=== PATIENT | female | born 1995 | race Caucasian/White ===

== ENCOUNTER → 2016-05-06 | Outpatient (CLI) | payer OTHER ==
[2016-05-06 13:29] LABS: BASO % 0.3 % (0.0-1.0); EOS # 0.1 K/mm3 (0.0-0.50); EOS % 0.7 % (0.0-3.0); LARGE UNSTAINED CELL # 0.1 K/mm3 (0.0-0.4); LARGE UNSTAINED CELL % 0.5 % (0.0-4.0); LYMPH % 14.8 % (24.0-44.0); MEAN CORPUSCULAR HEMOGLOBIN 29.9 pg (27.0-33.0); MEAN CORPUSCULAR HGB CONC 33.4 g/dl (32.0-36.5); MEAN CORPUSCULAR VOLUME 89.3 fl (80.0-96.0); MONO # 0.6 K/mm3 (0.0-0.8); MONO % 4.1 % (0.0-5.0); NEUTROPHILS # 10.9 K/mm3 (1.8-7.7); NEUTROPHILS % 79.7 % (36.0-66.0); PLATELET COUNT, AUTOMATED 217 k/mm3 (150-450); RED CELL DISTRIBUTION WIDTH 13.7 % (11.5-14.5); WHITE BLOOD COUNT 13.6 K/mm3 (4.0-10.0)
== END ==
LOC: M SMT 09:43
PROVIDERS: ATTEND Advanced Practice Midwife
DX: Z34.82 Encounter for supervision of other normal pregnancy, second trimester (principal)

== ENCOUNTER → 2016-07-22 | Outpatient (REF) | payer OTHER | LOC: M LAB REF 16:52 | PROVIDERS: ATTEND Advanced Practice Midwife | DX: Z34.83 Encounter for supervision of other normal pregnancy, third trimester (principal) ==

== ENCOUNTER 2016-08-19 06:59 | Inpatient (IN) | payer OTHER ==
[~2016-08-19] VITALS: Ht 160 cm; Wt 100.0 kg
[2016-08-19] VITALS (25 sets, daily range): BP systolic 122–164; BP diastolic 61–93
[2016-08-19] MEDS ORDERED: VITAPRTA PO (07:46)
[2016-08-19] MEDS ORDERED: LR 1,000 ML IV SCH (08:18)
[2016-08-19] MEDS ORDERED: OXYTOCIN DRIP 30 UNITS in APPROPRIATE DILUENT 1 EA IV SCH ×2 (08:30→13:15)
[2016-08-19] MEDS ORDERED: OXYTOCIN 30 UNITS IN 0.9% NaCl 500ML IV BAG (J2590) As Ordered ONE (09:02)
[2016-08-19 09:07] LABS: MEAN CORPUSCULAR HEMOGLOBIN 29.2 pg (27.0-33.0); MEAN CORPUSCULAR HGB CONC 33.6 g/dl (32.0-36.5); MEAN CORPUSCULAR VOLUME 86.9 fl (80.0-96.0); RED CELL DISTRIBUTION WIDTH 14.1 % (11.5-14.5); WHITE BLOOD COUNT 18.5 K/mm3 (4.0-10.0)
[2016-08-19 09:23] LABS: ALT/SGPT 16 U/L (12-78); AST/SGOT 13 U/L (15-37); BILIRUBIN,TOTAL 0.2 MG/DL (0.2-1.0); CREATININE FOR GFR 0.61 MG/DL (0.55-1.02); GLOMERULAR FILTRATION RATE > 60.0 (>60); URIC ACID 3.8 MG/DL (2.6-6.0)
--- NOTE | 2016-08-19 09:26 | HPE ---
DATE OF ADMISSION: 08/19/2016 Yvonne is a 20-year-old, 1 para 0 at 40-2/7 weeks gestation with an EDC of 08/17/2016 based on last normal period and confirmed by first trimester ultrasound. She presents to labor and delivery today with report of spontaneous rupture of membranes, clear odorless fluid at approximately 0430. She does report some contractions that started immediately after, however they are about 4 to 6 minutes apart. She does report continued leakage of fluid, some scant bloody show and the fetus has been active. care initiated at [facility] in the first trimester. course complicated by tobacco use throughout entire . OB HISTORY: Prima . OB LABS: Blood type O positive. Antibody screen negative. Rubella immune. VDRL nonreactive. Urine culture with no growth. Hep B surface antigen negative. HIV negative. Hep C antibody nonreactive. Gonorrhea and chlamydia negative. She did undergo cystic fibrosis carrier screening which was negative for 97 mutations. Gestational diabetic screen 98 and Group B Streptococcus (GBS) is negative. PAST MEDICAL HISTORY: No current problems. SURGERIES: None. FAMILY HISTORY : Diabetes, hypertension, heart disease, multiple sclerosis and cystic fibrosis. FAMILY HISTORY: Patient is single. The father of the baby is at bedside and supportive. She is a smoker. Denies alcohol and drug use. No history of any sexually transmitted infections and denies history of abuse, physical, sexual and emotional. ALLERGIES: PENICILLIN. CURRENT MEDICATIONS: - vitamin OBJECTIVE: Temperature 98.1, pulse 88, respirations 26 which were observed during a contraction, blood pressure upon arrival 156/93, repeat 122/75. heart rate is 140 with moderate variability, positive accelerations, no decelerations observed. Abdomen is gravid, cephalic presentation. Estimated weight 7-1/2 pounds. Sterile speculum exam: Positive Nitrazine, positive fern. Negative pooling. Positive Valsalva. Sterile vaginal exam: 3 cm dilated, 90% effaced, -2 station. Mid position and soft. ASSESSMENT: Intrauterine at 40-2/7 weeks gestation. heart rate category 1. Early latent labor. Premature rupture of membranes. PLAN: Admit patient to labor and delivery. Labs including pre-eclamptic profile, clear liquid diet, out of bed ad antonio. I do plan to start IV Pitocin to augment the patient's labor. The patient does desire an epidural when she is uncomfortable. I do anticipate labor and a spontaneous vaginal delivery.
[2016-08-19] MEDS ORDERED: LR 1,000 ML IV ONE (10:45)
[2016-08-19] MEDS ORDERED: FENTANYL 2MCG/ML ROPIVACAINE 0.2% IN 0.9% NACL 200ML IVBAG As Ordered ONE (11:00)
[2016-08-19] MEDS ORDERED: ONDANSETRON 4MG/2ML VIAL (J2405) IV PRN (12:15)
[2016-08-19] MEDS ORDERED: FENTANYL/ROPIVACAINE/NACL BAG 200 ML EPIDURAL SCH (12:15)
[2016-08-19] MEDS ORDERED: EPIDURAL/PCA KEYS XX PRN (12:15)
[2016-08-19] MEDS ORDERED: NALOXONE INJ 0.4 MG/1 ML VIAL (J2310) IV PRN (12:15)
[2016-08-19] MEDS ORDERED: REFRIGERATOR IV KEYS XX PRN (12:15)
[2016-08-19] MEDS ORDERED: diphenhydrAMINE INJ 50MG/ML VIAL (J1200) IV PRN (12:15)
[2016-08-19] MEDS ORDERED: ePHEDrine SULFATE 25 MG/5 ML(5MG/ML) SYRINGE IV PRN (12:15)
[2016-08-19] MEDS ORDERED: EPIDURAL COMMENT XX SCH (12:15)
[2016-08-19] MEDS ORDERED: LACTATED RINGER'S 1000 ML IV PRN (12:15)
[2016-08-19] MEDS ORDERED: ANUSOL HC CREAM 30GM TOP PRN (13:15)
[2016-08-19] MEDS ORDERED: LIDOCAINE 1% MDV INJ 50 ML VIAL INFIL ONE (13:15)
[2016-08-19] MEDS ORDERED: DIBUCAINE 1% OINTMENT 30GM TOP PRN (13:15)
[2016-08-19] MEDS ORDERED: DOCUSATE SODIUM 100 MG CAP PO PRN (13:15)
[2016-08-19] MEDS ORDERED: MEASLES,MUMPS,RUBELLA VACCINE INJ (MMR-II) (90707) SC SCH (13:15)
[2016-08-19] MEDS ORDERED: ACETAMINOPHEN 500 MG TAB PO PRN (13:15)
[2016-08-19] MEDS ORDERED: RHOGAM 300 MCG (1500 IU) INJ (J2790) IM SCH (13:15)
--- NOTE | 2016-08-19 13:30 | DN ---
DATE: 08/19/2016 DELIVERY NOTE: Yvonne is at 20-year-old, 1, para 1-0-0-1 now, who was admitted to labor and delivery with premature rupture of membranes. Intravenous (IV) Pitocin was started and labor did ensue. She did utilize an epidural for her labor coping. She progressed to full dilation at 1141 hours. She pushed to a normal spontaneous vaginal delivery of a live female in occiput anterior (OA) position with restitution to left occiput transverse (LOT) position at 1210 hours. There was no nuchal cord. Shoulders delivered spontaneously and corpus immediately followed. The was placed on maternal abdomen crying and active. Nares and mouth were bulb suctioned. The cord was clamped times two and cut by the father of the baby. Manual removal of intact placenta with three-vessel cord was performed at 1242 hours. Placenta was inspected and noted to be intact. All cotyledons accounted for. Uterine hemostasis achieved with IV Pitocin rapid infusion and uterine fundal massage. Estimated blood loss 700 mL. Perineum and vagina inspected. Noted a second-degree midline laceration, left labial abrasion and periurethral laceration. The lacerations were infiltrated with lidocaine and repaired with #3-0 Rapide. female weighed 3462 grams (7 pounds 10 ounces), score 8 and 9. Mom is going to bottle feed her daughter and the family have named her Cecille. At the close of delivery, instrument counts, needle count and lap counts were correct and verified.
[2016-08-19] MEDS: IBUPROFEN 800 MG TAB PO PRN (15:30)
[2016-08-19] MEDS: PRENATAL VITAMIN TAB PO SCH (16:43)
[2016-08-20 06:25] VITALS: BP 129/58
[2016-08-20] MEDS: PRENATAL VITAMIN TAB PO SCH (07:23)
[2016-08-20 18:10] VITALS: BP 136/62
[2016-08-20 20:10] VITALS: BP 136/62
[2016-08-20] MEDS: IBUPROFEN 800 MG TAB PO PRN (23:30)
[2016-08-21 05:38] VITALS: BP 118/61
[2016-08-21] MEDS ORDERED: MOTR200T44 PO (08:52)
[2016-08-21] MEDS ORDERED: TYLE500T78 PO (08:52)
== END 2016-08-21 10:30 | disposition home or self-care (01) | DRG 560 ==
LOC: M LDO 06:59 → M LDI 08:16 → M OBS 14:59
PROVIDERS: ADMIT Advanced Practice Midwife; ATTEND Advanced Practice Midwife
PROC: 10E0XZZ Delivery of Products of Conception, External Approach (ICD-10-PCS; principal; 2016-08-19)
PROC: 0KQM0ZZ Repair Perineum Muscle, Open Approach (ICD-10-PCS; 2016-08-19)
PROC: 0HQ9XZZ Repair Perineum Skin, External Approach (ICD-10-PCS; 2016-08-19)
DX: O48.0 Post-term pregnancy (principal); F17.200 Nicotine dependence, unspecified, uncomplicated; Z37.0 Single live birth; Z3A.40 40 weeks gestation of pregnancy; O99.334 Smoking (tobacco) complicating childbirth; O42.02 Full-term premature rupture of membranes, onset of labor within 24 hours of rupture; O70.1 Second degree perineal laceration during delivery; O70.0 First degree perineal laceration during delivery

== ENCOUNTER → 2019-11-30 | Outpatient (REF) | payer BC ==
[~2019-11-30] MED LIST: MOTR200T44 PO; TYLE500T78 PO; VITAPRTA PO
[2019-12-26 09:21] LABS: BASO # 0.1 10^3/uL (0.0-0.2); BASO % 0.5 % (0.0-1.0); EOS # 0.2 10^3/uL (0.0-0.5); EOS % 1.6 % (0.0-3.0); HEMATOCRIT 43.4 % (36.0-47.0); HEMOGLOBIN 14.3 g/dl (12.0-15.5); LYMPH # 3.4 10^3/uL (1.5-5.0); LYMPH % 35.7 % (24.0-44.0); MEAN CORPUSCULAR HEMOGLOBIN 29.5 pg (27.0-33.0); MEAN CORPUSCULAR HGB CONC 32.9 g/dl (32.0-36.5); MEAN CORPUSCULAR VOLUME 89.7 fl (80.0-96.0); MONO # 0.6 10^3/uL (0.0-0.8); NEUTROPHILS # 5.3 10^3/uL (1.5-8.5); NEUTROPHILS % 55.9 % (36.0-66.0); PLATELET COUNT, AUTOMATED 206 10^3/uL (150-450); RED BLOOD COUNT 4.84 10^6/uL (4.00-5.40); WHITE BLOOD COUNT 9.5 10^3/uL (4.0-10.0)
[2020-01-07 09:07] LABS: ALBUMIN 3.6 GM/DL (3.2-5.2); ALT/SGPT 29 U/L (12-78); BILIRUBIN,TOTAL 0.2 MG/DL (0.2-1.0); BLOOD UREA NITROGEN 8 MG/DL (7-18); CARBON DIOXIDE LEVEL 26 MEQ/L (21-32); CHLORIDE LEVEL 108 MEQ/L (98-107); CHOLESTEROL LEVEL 163 MG/DL (<200); CHOLESTEROL RISK RATIO 4.405 (<5); CREATININE FOR GFR 1.03 MG/DL (0.55-1.30); GLOMERULAR FILTRATION RATE > 60.0 (>60); GLUCOSE, FASTING 86 MG/DL (70-100); HDL CHOLESTEROL 37 MG/DL (>40); LDL CHOLESTEROL 94 MG/DL (<100); NON-HDL-C 126 MG/DL; POTASSIUM SERUM 4.4 MEQ/L (3.5-5.1); SODIUM LEVEL 138 MEQ/L (136-145); TOTAL PROTEIN 7.2 GM/DL (6.4-8.2); TRIGLYCERIDES LEVEL 162 MG/DL (<150)
== END ==
LOC: M LABWUC 11:31
PROVIDERS: ATTEND Internal Medicine Cardiovascular Disease
DX: R00.2 Palpitations (principal); Z72.0 Tobacco use

== ENCOUNTER → 2020-06-27 | Outpatient (REF) | payer BC, OTHER ==
[2020-06-27 13:53] LABS: BASO # 0.1 10^3/uL (0.0-0.2); BASO % 0.6 % (0.0-1.0); EOS # 0.2 10^3/uL (0.0-0.5); HEMATOCRIT 41.1 % (36.0-47.0); HEMOGLOBIN 13.1 g/dl (12.0-15.5); LYMPH # 2.8 10^3/uL (1.5-5.0); LYMPH % 25.6 % (24.0-44.0); MEAN CORPUSCULAR HEMOGLOBIN 28.7 pg (27.0-33.0); MEAN CORPUSCULAR HGB CONC 31.9 g/dl (32.0-36.5); MEAN CORPUSCULAR VOLUME 90.1 fl (80.0-96.0); MONO # 0.6 10^3/uL (0.0-0.8); MONO % 5.2 % (2.0-8.0); NEUTROPHILS # 7.1 10^3/uL (1.5-8.5); NEUTROPHILS % 66.2 % (36.0-66.0); PLATELET COUNT, AUTOMATED 103 10^3/uL (150-450); RED BLOOD COUNT 4.56 10^6/uL (4.00-5.40); WHITE BLOOD COUNT 10.8 10^3/uL (4.0-10.0)
[2020-06-27 14:03] LABS: ALBUMIN 3.2 GM/DL (3.2-5.2); ALT/SGPT 20 U/L (12-78); BILIRUBIN,TOTAL 0.3 MG/DL (0.2-1.0); BLOOD UREA NITROGEN 10 MG/DL (7-18); CALCIUM LEVEL 9.2 MG/DL (8.5-10.1); CARBON DIOXIDE LEVEL 24 MEQ/L (21-32); CHLORIDE LEVEL 109 MEQ/L (98-107); CHOLESTEROL LEVEL 135 MG/DL (<200); CHOLESTEROL RISK RATIO 3.857 (<5); CREATININE FOR GFR 0.93 MG/DL (0.55-1.30); GLOMERULAR FILTRATION RATE > 60.0 (>60); GLUCOSE, FASTING 81 MG/DL (70-100); HDL CHOLESTEROL 35 MG/DL (>40); LDL CHOLESTEROL 70 MG/DL (<100); NON-HDL-C 100 MG/DL; POTASSIUM SERUM 4.1 MEQ/L (3.5-5.1); SODIUM LEVEL 142 MEQ/L (136-145); THYROID STIMULATING HORMONE 0.915 uIU/ML (0.358-3.740); TRIGLYCERIDES LEVEL 152 MG/DL (<150)
== END ==
LOC: M LABDRWAD 12:29
PROVIDERS: ATTEND Physician Assistant Medical
DX: R06.02 Shortness of breath (principal); R00.2 Palpitations; E66.9 Obesity, unspecified; R94.31 Abnormal electrocardiogram [ECG] [EKG]; R07.9 Chest pain, unspecified; Z72.0 Tobacco use; Z82.49 Family history of ischemic heart disease and other diseases of the circulatory system

== ENCOUNTER 2021-11-11 11:49 | Emergency (ER) | payer BC, OTHER ==
[~2021-11-11] VITALS: Ht 160 cm; Wt 108.0 kg
[2021-11-11 11:50] VITALS: BP 144/65
[2021-11-11] MEDS ORDERED: PREN1TAB18 PO (12:49)
[2021-11-11 15:12] LABS: BASO # 0.1 10^3/uL (0.0-0.2); BASO % 0.5 % (0.0-1.0); EOS # 0.1 10^3/uL (0.0-0.5); HEMATOCRIT 40.1 % (36.0-47.0); HEMOGLOBIN 13.2 g/dl (12.0-15.5); LYMPH # 3.1 10^3/uL (1.5-5.0); LYMPH % 25.4 % (24.0-44.0); MEAN CORPUSCULAR HEMOGLOBIN 28.6 pg (27.0-33.0); MEAN CORPUSCULAR HGB CONC 32.9 g/dl (32.0-36.5); MONO # 0.9 10^3/uL (0.0-0.8); NEUTROPHILS % 65.7 % (36.0-66.0); PLATELET COUNT, AUTOMATED 234 10^3/uL (150-450); RED BLOOD COUNT 4.61 10^6/uL (4.00-5.40); WHITE BLOOD COUNT 12.2 10^3/uL (4.0-10.0)
[2021-11-11 15:22] LABS: BLOOD UREA NITROGEN 6 MG/DL (7-18); CALCIUM LEVEL 9.4 MG/DL (8.5-10.1); CARBON DIOXIDE LEVEL 28 MEQ/L (21-32); CHLORIDE LEVEL 106 MEQ/L (98-107); CREATININE FOR GFR 0.84 MG/DL (0.55-1.30); GLOMERULAR FILTRATION RATE > 60.0 (>60); GLUCOSE, FASTING 80 MG/DL (70-100); SODIUM LEVEL 137 MEQ/L (136-145)
[2021-11-11 17:31] LABS: HCG, SERUM QUANTITATIVE 1214 MIU/ML
[2021-11-13] MEDS ORDERED: METR-265 PO (08:07)
== END 2021-11-11 19:59 | disposition home or self-care (01) ==
LOC: M ED 11:49
DX: O20.0 Threatened abortion (principal); O99.331 Smoking (tobacco) complicating pregnancy, first trimester; Z3A.00 Weeks of gestation of pregnancy not specified; Z79.899 Other long term (current) drug therapy

== ENCOUNTER → 2021-11-14 | Outpatient (CLI) | payer OTHER ==
[~2021-11-14] MED LIST changes: +METR-265 PO; +PREN1TAB18 PO
== END ==
LOC: M PLALAB 09:20
PROVIDERS: ATTEND Advanced Practice Midwife
DX: O26.859 Spotting complicating pregnancy, unspecified trimester (principal); Z3A.00 Weeks of gestation of pregnancy not specified

== ENCOUNTER 2022-07-13 22:10 | Emergency (ER) | payer OTHER ==
[~2022-07-13] VITALS: Ht 160 cm; Wt 117.1 kg
[2022-07-13] MEDS ORDERED: NOXI1TAB PO (22:21)
[2022-07-13] MEDS ORDERED: LEXA1TAB PO (22:21)
[2022-07-13] MEDS ORDERED: RA N1TAB PO (22:21)
[2022-07-13 23:56] LABS: BASO # 0.1 10^3/uL (0.0-0.2); BASO % 0.5 % (0.0-1.0); EOS # 0.1 10^3/uL (0.0-0.5); HEMATOCRIT 35.4 % (36.0-47.0); LYMPH # 3.2 10^3/uL (1.5-5.0); LYMPH % 29.7 % (24.0-44.0); MEAN CORPUSCULAR HEMOGLOBIN 29.6 pg (27.0-33.0); MEAN CORPUSCULAR HGB CONC 33.9 g/dl (32.0-36.5); MEAN CORPUSCULAR VOLUME 87.4 fl (80.0-96.0); MONO # 0.6 10^3/uL (0.0-0.8); MONO % 5.1 % (2.0-8.0); NEUTROPHILS # 6.8 10^3/uL (1.5-8.5); NEUTROPHILS % 63.3 % (36.0-66.0); PLATELET COUNT, AUTOMATED 220 10^3/uL (150-450); RED BLOOD COUNT 4.05 10^6/uL (4.00-5.40); WHITE BLOOD COUNT 10.7 10^3/uL (4.0-10.0)
[2022-07-13 23:59] LABS: BLOOD UREA NITROGEN 7 MG/DL (9-23); CALCIUM LEVEL 8.5 MG/DL (8.5-10.1); CARBON DIOXIDE LEVEL 23 MMOL/L (20-31); CHLORIDE LEVEL 104 MMOL/L (98-107); CREATININE FOR GFR 0.67 MG/DL (0.55-1.30); GLOMERULAR FILTRATION RATE > 60.0 (>60); GLUCOSE, FASTING 133 MG/DL (60-100); POTASSIUM SERUM 3.2 MMOL/L (3.5-5.1); SODIUM LEVEL 136 MMOL/L (136-145)
[2022-07-14 00:20] LABS: HCG, SERUM QUANTITATIVE 78709.6 MIU/ML (<4.2)
[2022-07-14 03:49] VITALS: BP 149/83
== END 2022-07-14 03:55 | disposition home or self-care (01) ==
LOC: M ED 22:10
DX: O03.4 Incomplete spontaneous abortion without complication (principal); O30.031 Twin pregnancy, monochorionic/diamniotic, first trimester; O99.211 Obesity complicating pregnancy, first trimester; O99.331 Smoking (tobacco) complicating pregnancy, first trimester; Z3A.09 9 weeks gestation of pregnancy; Z88.0 Allergy status to penicillin